=== PATIENT | male | born 1955 | race Two or more races ===

== ENCOUNTER 2022-08-12 12:42 | Inpatient (IN) | payer MEDICARE, OTHER ==
[~2022-08-12] VITALS: Ht 180.3 cm; Wt 72.2 kg
--- NOTE | 2022-08-12 12:50 | NUR ---
[id number] FROM [place] C/O BILAT FOOT PAIN X1WEEK WORST TODAY
[2022-08-12] MEDS ORDERED: IBUPROFEN 600 MG TABLET PO ONE (14:30)
[2022-08-12] MEDS ORDERED: GABAPENTIN 100 MG CAPSULE PO ONE (14:30)
[2022-08-12] MEDS ORDERED: GABAPENTIN 100 MG CAPSULE ONE (15:05)
[2022-08-12] MEDS ORDERED: IBUPROFEN 600 MG TABLET ONE (15:05)
[2022-08-12] MEDS ORDERED: GABA-532 PO (16:06)
[2022-08-12] MEDS ORDERED: ACET-2605 PO (16:06)
--- NOTE | 2022-08-12 16:23 | NUR ---
PATIENT STATES UNABLE TO AMBULATE, DR MARQUEZ MADE AWARE.
[2022-08-12 17:11] LABS: BASOPHILS % (AUTO) 0.1 % (0.0-2.0); HEMATOCRIT 33 % (39-51); HEMOGLOBIN 10.6 g/dL (13.5-17.5); LYMPHOCYTES # (AUTO) 0.9 K/uL (0.8-4.8); LYMPHOCYTES % (AUTO) 6.4 % (20.0-44.0); MEAN CORPUSCULAR HGB CONC 32 g/dl (31.0-36.0); MEAN CORPUSCULAR VOLUME 94 fL (80-96); MONOCYTES # (AUTO) 0.9 K/uL (0.1-1.30); MONOCYTES % (AUTO) 6.3 % (2.0-12.0); NEUTROPHILS % (AUTO) 86.2 % (43.0-81.0); PLATELET COUNT (AUTO) 320 K/uL (150-450); RED BLOOD CELL COUNT(AUTO) 3.49 MIL/uL (4.5-6.0); WHITE BLOOD COUNT (AUTO) 13.9 K/uL (4.3-11.0)
--- NOTE | 2022-08-12 17:19 | NUR ---
EPIC PAGED, AWAITING CALL BACK FROM DR. GAITAN
--- NOTE | 2022-08-12 17:39 | NUR ---
MOVE SHEET SUBMITTED
[2022-08-12 18:03] LABS: ALBUMIN 2.7 g/dL (3.4-5.0); BILIRUBIN,DIRECT 0.2 mg/dL (0.0-0.2); BILIRUBIN,TOTAL 0.4 mg/dL (0.2-1.0); CALCIUM, SERUM 8.6 mg/dL (8.5-10.1); CREATININE 1.3 mg/dL (0.6-1.3); POTASSIUM 3.7 mmol/L (3.5-5.1); TOTAL PROTEIN, SERUM 6.8 g/dL (6.4-8.2)
[2022-08-12] MEDS ORDERED: IV NS 0.9% 250 ML IV ONE (18:27)
[2022-08-12] MEDS ORDERED: IOHEXOL-350 100 ML VIAL IV ONE (18:27)
--- NOTE | 2022-08-12 18:42 | NUR ---
GOT BED 323-2
--- NOTE | 2022-08-12 19:50 | NUR ---
DR MARQUEZ ON THE PHONE WITH ONCALL VASCULAR SURGON FOR DR MARKS
--- NOTE | 2022-08-12 21:27 | NUR ---
REPORT GIVEN TO CYNDI COLLIER ROOM 312 FOR RIGO
--- NOTE | 2022-08-12 21:35 | NUR ---
TRANSFERRED TO 323 IN STALE CONDITION
[2022-08-12 21:40] VITALS: BP 90/73
[2022-08-12 21:45] VITALS: BP 95/73
--- NOTE | 2022-08-12 21:45 | NUR ---
MS METAL SMELTER NOTE PT TRANSPORTED VIA GURNEY TO UNIT AT THIS TIME. PT ADMITTED TO MS UNIT FROM ER UNDER DRAG OUT WORKER YASIR FOR ADMITTING DX LOWER EXTREMITY CELLULITIS. A/O X4 AND ABLE TO MAKE NEEDS KNOWN, POOR HISTORIAN. PT UNABLE TO AMBULATE AT THIS TIME D/T INCREASED PAIN AND SWELLING OF BLE. PT STABLE ON ROOM AIR. NO SOB OR S/S OF RESPIRATORY DISTRESS. BREATHING EVEN AND UNLABORED. NOTED WITH SWELLING AND REDNESS OF BLE, PEDAL PULSES ABSENT, MD AWARE. IV ACCESS RAC 20G, INTACT AND PATENT. PT ORIENTED TO ROOM, UNIT, AND STAFF. BELONGINGS ACCOUNTED FOR AND BELONGINGS LIST SIGNED. SAFETY PRECAUTIONS IN PLACE. BED IN LOWEST LOCKED POSITION, HOB ELEVATED, SIDE RAILS UP X2, AND CALL LIGHT AND TABLE WITHIN REACH. ALL NEEDS MET AT THIS TIME.
[2022-08-12] MEDS: IV NS 0.9% 1,000 ML IV PRN (23:29)
[2022-08-12] MEDS ORDERED: MAG HYDROX/AL HYDROX/SIMETH 30 ML UDC PO PRN (23:30)
[2022-08-12] MEDS ORDERED: ACETAMINOPHEN 325 MG TABLET PO PRN (23:30)
[2022-08-12] MEDS ORDERED: ZOLPIDEM TARTRATE 5 MG TABLET PO PRN (23:30)
[2022-08-12] MEDS ORDERED: MAGNESIUM HYDROXIDE 30 ML UDC PO PRN (23:30)
[2022-08-12] MEDS ORDERED: Z GUARD REMEDY 4 OZ OINT TP PRN (23:30)
[2022-08-12] MEDS ORDERED: ONDANSETRON HCL/PF 4 MG/2 ML VIAL IVP PRN (23:30)
[2022-08-12] MEDS ORDERED: VANCOMYCIN 1 GM in IV D5W 250 ML IV ONE (23:30)
[2022-08-12] MEDS ORDERED: HYDROCODONE/APAP 5/325MG TABLET PO PRN (23:30)
[2022-08-12] MEDS ORDERED: VANCOMYCIN 1 GM VIAL ONE (23:43)
[2022-08-12] MEDS: ENOXAPARIN SODIUM 40 MG/0.4 ML DISP.SYRIN SQ SCH (23:48)
--- NOTE | 2022-08-13 06:53 | NUR ---
MS RN CLOSING NOTE PT AWAKE IN BED. A/O X4 AND ABLE TO MAKE NEEDS KNOWN, POOR HISTORIAN. PT STABLE ON ROOM AIR. NO SOB OR S/S OF RESPIRATORY DISTRESS. BREATHING EVEN AND UNLABORED. IV ACCESS RAC 20G, INTACT AND PATENT,RUNNING NS @ 100 ML/HR. ALL DUE MEDS GIVEN ORDERED. SAFETY PRECAUTIONS IN PLACE AT ALL TIMES. BED IN LOWEST LOCKED POSITION, HOB ELEVATED, SIDE RAILS UP X2, AND CALL LIGHT AND TABLE WITHIN REACH. ALL NEEDS MET AT THIS TIME AND WILL ENDORSE TO ONCOMING NURSE FOR RIGO.
[2022-08-13 07:28] LABS: BASOPHILS % (AUTO) 0.2 % (0.0-2.0); EOSINOPHILS % (AUTO) 2.6 % (0.0-6.0); HEMATOCRIT 34 % (39-51); HEMOGLOBIN 10.9 g/dL (13.5-17.5); LYMPHOCYTES # (AUTO) 0.9 K/uL (0.8-4.8); MEAN CORPUSCULAR HGB CONC 32 g/dl (31.0-36.0); MEAN CORPUSCULAR VOLUME 95 fL (80-96); MONOCYTES # (AUTO) 0.9 K/uL (0.1-1.30); MONOCYTES % (AUTO) 9.4 % (2.0-12.0); NEUTROPHILS # (AUTO) 7.2 K/uL (1.8-8.9); NEUTROPHILS % (AUTO) 77.8 % (43.0-81.0); PLATELET COUNT (AUTO) 307 K/uL (150-450); RED BLOOD CELL COUNT(AUTO) 3.56 MIL/uL (4.5-6.0); WHITE BLOOD COUNT (AUTO) 9.2 K/uL (4.3-11.0)
[2022-08-13 08:00] VITALS: BP 86/66
[2022-08-13 08:05] LABS: CALCIUM, SERUM 8.3 mg/dL (8.5-10.1); CREATININE 1.3 mg/dL (0.6-1.3); MAGNESIUM 1.3 mg/dL (1.8-2.4); PHOSPHORUS 3.6 mg/dL (2.5-4.9); POTASSIUM 3.9 mmol/L (3.5-5.1)
[2022-08-13] MEDS ORDERED: PANTOPRAZOLE 40 MG VIAL IV SCH (09:00)
--- NOTE | 2022-08-13 09:59 | NUR ---
WOUND CARE CONSULT: RECEIVED CONSULT FOR LOWER LEG CELLULITIS, PRESENT ON ADMISSION. PT IS SLEEPING SOUNDLY. REVIEWED ADMISSION PHOTOS AND SPOKE WITH NURSING STAFF. DR VARELA CALLED FOR DPM CONSULT. IN AGREEMENT WITH PLAN OF CARE.
[2022-08-13] MEDS: GABAPENTIN 100 MG CAPSULE PO SCH ×3 (10:34→17:18)
[2022-08-13] MEDS: ASPIRIN 81 MG TAB.CHEW PO SCH (10:34)
[2022-08-13] MEDS: Magnesium 1GM/D5W 100ML PREMIX 100 ML IV SCH ×4 (10:35→14:53)
[2022-08-13 16:00] VITALS: BP 111/74
--- NOTE | 2022-08-13 16:05 | NUR ---
SS CONSULT requested for homelessness. SW will follow up at a later time.
[2022-08-13] MEDS: VANCOMYCIN 0.75 GM in IV D5W 250 ML IV SCH ×2 (16:25→22:00)
--- NOTE | 2022-08-13 19:30 | NUR ---
PATIENT RECEIVED IN BED AND AWAKE. A/OX3-4 AND ABLE TO VERBALIZE NEEDS. COMPLAINING OF SOB. CRANE HOOKER AT BEDSIDE. WILL ASK FOR PRN ORDER. O2 SAT AT 99%. IV ACCESS ON RAC G#20 INFUSING 0.9NS AT 100ML/HR. URINAL AT BEDSIDE. SAFETY MEASURES IN PLACE. CALL LIGHT WITHIN REACH. WILL CONTINUE PLAN OF CARE.
--- NOTE | 2022-08-13 19:39 | NUR ---
RN CLOSING NOTE PATIENT RECEIVED IN BED AND AWAKE. A/OX3-4 AND ABLE TO VERBALIZE NEEDS. IV ACCESS INTACT AND PATENT WITH NS RUNNING CONTINUOUSLY @ 100ML/HR. MAGNESIUM REPLACED ON SHIFT. TOLERATED WELL. IV ABX THERAPY ADMINISTERED ON SHIFT. TOLERATED WELL WITH NO S/SX OF ADVERSE REACTIONS. NO S/SX OF DISTRESS OBSERVED OR REPORTED. TOLERATED FULL LIQUID DIET WELL. SAFETY MEASURES INTACT WITH BED LOW AND LOCKED. CALL LIGHT WITHIN REACH. WILL CONT TO MONITOR.
[2022-08-13 20:00] VITALS: BP 106/82
[2022-08-13] MEDS: MORPHINE SULFATE INJ 2 MG/ML DISP.SYRIN IV PRN (20:41)
[2022-08-13] MEDS: CEFTRIAXONE 1 G in IV D5W 50 ML IV SCH (21:34)
[2022-08-13] MEDS: ENOXAPARIN SODIUM 40 MG/0.4 ML DISP.SYRIN SQ SCH (21:35)
[2022-08-13] MEDS: IV NS 0.9% 1,000 ML IV PRN (22:00)
[2022-08-14 04:00] VITALS: BP 110/80
--- NOTE | 2022-08-14 06:31 | NUR ---
PATIENT IN BED AWAKE. A/OX3-4 AND ABLE TO VERBALIZE NEEDS. NO SOB. O2 SAT AT 100%. IV ACCESS ON RAC G#20 INFUSING 0.9NS AT 100ML/HR. URINAL AT BEDSIDE. DUE MEDS AND PRN MEDS GIVEN ORDERED AND NEEDED. NEEDS ATTENDED. SAFETY MEASURES MAINTAINED. CALL LIGHT WITHIN REACH. WILL ENDORSE TO NEXT NURSE ON DUTY FOR CONTINUITY OF CARE.
--- NOTE | 2022-08-14 07:28 | NUR ---
MS RN OPENING NOTE RECEIVED PT AWAKE AND RESTING IN BED. PT A/O X4, ABLE TO MAKE NEEDS KNOWN. ON ROOM AIR, TOLERATING WELL. NO SOB NOTED. NOT IN ANY SIGN OF RESPIRATORY DISTRESS. IV ACCESS IN RAC G#20, INTACT AND PATENT WITH NS INFUSING AT 100ML/HR. SAFETY MEASURES IN PLACE: BED IN LOWEST AND LOCKED POSITION, SIDE RAILS UPX2, BED ALARM ON, AND CALL LIGHT WITHIN REACH. WILL CONTINUE TO MONITOR PT.
[2022-08-14 07:30] LABS: BASOPHILS % (AUTO) 0.1 % (0.0-2.0); EOSINOPHILS % (AUTO) 2.6 % (0.0-6.0); HEMATOCRIT 34 % (39-51); HEMOGLOBIN 11.1 g/dL (13.5-17.5); LYMPHOCYTES # (AUTO) 1.1 K/uL (0.8-4.8); LYMPHOCYTES % (AUTO) 12.5 % (20.0-44.0); MEAN CORPUSCULAR HGB CONC 33 g/dl (31.0-36.0); MEAN CORPUSCULAR VOLUME 96 fL (80-96); MONOCYTES # (AUTO) 0.9 K/uL (0.1-1.30); MONOCYTES % (AUTO) 10.6 % (2.0-12.0); NEUTROPHILS # (AUTO) 6.6 K/uL (1.8-8.9); NEUTROPHILS % (AUTO) 74.2 % (43.0-81.0); PLATELET COUNT (AUTO) 327 K/uL (150-450); RED BLOOD CELL COUNT(AUTO) 3.52 MIL/uL (4.5-6.0); WHITE BLOOD COUNT (AUTO) 8.9 K/uL (4.3-11.0)
[2022-08-14 08:00] VITALS: BP 96/74
[2022-08-14 08:08] LABS: CALCIUM, SERUM 7.9 mg/dL (8.5-10.1); MAGNESIUM 2.1 mg/dL (1.8-2.4); PHOSPHORUS 3.3 mg/dL (2.5-4.9); POTASSIUM 4.3 mmol/L (3.5-5.1)
[2022-08-14] MEDS ORDERED: PANTOPRAZOLE 40 MG/PACK PACK PO SCH (09:00)
[2022-08-14] MEDS: GABAPENTIN 100 MG CAPSULE PO SCH ×3 (09:37→16:58)
[2022-08-14] MEDS: ASPIRIN 81 MG TAB.CHEW PO SCH (09:38)
--- NOTE | 2022-08-14 10:22 | NUR ---
"SW CONSULT: SW consult requested for homelessness. Patient brought to the hospital due to Vascular- Bilateral foot pain possible cellulites. Patient was cooperative with this check writer salesperson while conducting the assessment, he did stated that he is feeling weak and dizzy. Patient is alert and oriented x3 (self,place,situation). Patient stated he was brought to the hospital because of his foot pain. Patient reported that he has been living on the streets near [facility] in a tent. He stated that upon discharge he would want to return back to his tent that he has been living for about a month. He stated that he has been homeless on and off. Patient reported that he had a brother who is . 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 Patient reported no mental health illness history. Patient denies suicidal or homicidal ideation. Patient denied visual/auditory hallucinations. SW assessed for substance abuse and pt expressed that he has been drinking beer 3-4 times a week, he stated that he currently has quitted smoking. Pt denied any use of drugs only alcohol. SW offered pt resources and pt was accepting of shelters and substance abuse referrals. DC Plan: Pt stated that upon discharge he would want to return back to his tent near [facility]. CM will follow up with recommendations for doctor. Resources was given and pt was accepting. Substance Abuse resources provided included: [facility] Substance Abuse Self-Helpline ([facility]) ; CRI -[facility]LP [address] [facility]. [place] [phone] ; [facility] [address] [facility] [address] ; [facility] Rehabilitation Program [address] [facility] [address] ; [facility] [address] [facility] [address] ; [facility] [address] [facility] [address] ; [facility] [address] [facility] [phone] ; [facility] Substance Abuse Helpline([facility])-[facility] ; [facility] Family [facility] ; [facility] [place]; [facility] [place]; [facility] [place]; [facility] [place]; [facility]; [facility]; [facility]; [facility], [facility]. [place]; Alcoholics Anonymous -SFV; Dr-Kyua-Ycucxkr ; Marijuana Anonymous -[facility]V; Narcotics Anonymous www.na.org; Shelters: [facility] Provider: [facility] of [facility] Address: [address] [facility], [address] # of Beds: 47 Population Served: [facility] 6 | [facility] Provider: Home at Last Address: [address], [address] # of Beds: 66 Population Served: [facility] Provider: First to Serve Address: [address] [facility], [address] # of Beds: 56 Population Served: [facility] [place]rain [place] Provider: ALL[facility]. [facility] Address: [address] [facility], [address] # of Beds: 49 Population Served: [facility] 8 | [facility] Provider: First to Serve Address: [address] [facility], [address] # of Beds: 37 Population Served: [facility] Hygiene: [facility]: [address] [place] ; [facility] [address] [facility] ; [facility] [address] [place] Kar[place] . Food Resources: [facility] at [facility]- [address] [place]; Meet Each Need with Dignity ([facility]) [address] [place]; [facility] [address] [facility]; [facility] [address]. Mental Health resources provided: [facility] [address] [place], [place] [address] ; [facility] [address] [facility] [address], [place], [place] [id number] ; [facility] Mental [facility] [address] [facility] [place], [place] [phone] ; [facility] [address] [place], [place] [phone] Healthcare Clinics: [facility] [address] [facility], [address] [place]. [place] ; [facility] [address] [facility] [address] [place] [address]; [facility] [place] [address] [facility]. [place] 15[address] [phone] Counseling--Outpatient [facility] [address] [facility], [address] [place], [place] [address] (Specializes in in-depth psychotherapy for emotional distress: anxiety, depression, interpersonal conflicts, life transitions, childhood abuse) [facility] [address] [place] [address] (Assist with solving problem marital difficulties, separation & divorce, aging parents, & grief, chronic & terminal illness) [facility] [address] [place] [address] (Deal with loss & grief, anxiety, marital difficulties) Homebound/Mental Health Services [address] [facility], [address] [place], [place] [phone] (Provide in-home mental services to people who are incapable of leaving their homes) [facility] Elderly Senior Service/Resource Center [address] [place] [address] [facility] [address] [place] [address] PSYCHIATRIC OUTPATIENT SERVICES [facility] Partial Hospitalization and Intensive Outpatient Program (Managed Care and [place] Only)[address] [address] [facility] [phone] [facility] Partial Hospitalization and Outpatient [id number] [place], [place] [phone] [facility] Mental Health [place] C[address] [place], [place] [phone] [facility] Partial Hospitalization and Outpatient [id number] [facility] AubreyCHUALAR, [phone] "
[2022-08-14] MEDS: VANCOMYCIN 0.75 GM in IV D5W 250 ML IV SCH ×2 (11:55→23:24)
[2022-08-14] MEDS ORDERED: THIAMINE HCL 100 MG TABLET PO SCH (12:30)
[2022-08-14] MEDS: MORPHINE SULFATE INJ 2 MG/ML DISP.SYRIN IV PRN (15:35)
[2022-08-14] MEDS: IV NS 0.9% 1,000 ML IV PRN (15:35)
--- NOTE | 2022-08-14 15:38 | NUR ---
RN NOTE PT C/O RIGHT LOWER FOOT PAIN WITH PAIN SCALE LEVEL OF 8/10 AND REQUESTED FOR MORPHINE. MORPHINE 2MG IVP GIVEN ORDERED PRN Q4HRS FOR SEVERE PAIN. WILL MONITOR AND REASSESS PT.
--- NOTE | 2022-08-14 19:30 | NUR ---
MS RN OPENING NOTE RECEIVED PATIENT IN BED, WITH HOB ELEVATED, ALERT AND ORIENTED X4. ABLE TO MAKE NEEDS KNOWN. AFEBRILE AND NOT IN ANY FORM OF ACUTE DISTRESS. NO C/O PAIN OR DISCOMFORT AT THIS TIME. MAINTAINED ON FULL LIQUID DIET ORDERED. SAFETY MEASURES IN PLACE. KEPT BED IN LOCKED AND IN LOW POSITION TO REDUCE INJURY. SIDE RAILS UP X2. ADVISED TO USE THE CALL LIGHT WHEN IN NEED OF ASSISTANCE.
--- NOTE | 2022-08-14 19:39 | NUR ---
MS RN CLOSING NOTE PT AWAKE AND RESTING IN BED. PT A/O X4, ABLE TO MAKE NEEDS KNOWN. ON ROOM AIR, TOLERATING WELL. NO SOB NOTED. NOT IN ANY SIGN OF RESPIRATORY DISTRESS. IV ACCESS IN RAC G#20 WAS PULLED OUT BY PT ACCIDENTLY. ATTEMPTED TO REINSERT THE IV BUT UNABLE TO. ENDORSED TO B AND B GANG WORKER NURSE OSMEL. PER OSMEL, SHE WILL TRY TO REINSERT IV. ALL NEEDS ATTENDED. KEPT CLEAN AND COMFORTABLE AT ALL TIMES. SAFETY MEASURES IN PLACE: BED IN LOWEST AND LOCKED POSITION, SIDE RAILS UPX2, BED ALARM ON, AND CALL LIGHT WITHIN REACH. ENDORSED TO NIGHT NURSE FOR RIGO.
--- NOTE | 2022-08-14 20:00 | NUR ---
MS RN NOTE PER REPORT, PATIENT PULLED OUT IV SITE. REINSERTED IV LINE ON R FOREARM 22G- AND NOTED WITH GOOD BLOOD FLOW. TOLERATED THE PROCEDURE WELL. ADMINISTERED IV ATB FOR CELLULITIS. MONITORED FOR ANY ADVERSE REACTION.
[2022-08-14] MEDS: CEFTRIAXONE 1 G in IV D5W 50 ML IV SCH (20:42)
[2022-08-14] MEDS: ENOXAPARIN SODIUM 40 MG/0.4 ML DISP.SYRIN SQ SCH (21:56)
--- NOTE | 2022-08-15 01:47 | NUR ---
MS RN NOTE PATIENT KEEPS ON GETTING OUT OF BED AND CLAIMED THAT HE'S HAVING HARD TIME SLEEPING DESPITE OFFERING SOME JUICE. ADMINISTERED AMBIEN ORDERED.
[2022-08-15] MEDS: IV NS 0.9% 1,000 ML IV PRN (06:17)
--- NOTE | 2022-08-15 06:42 | NUR ---
MS RN CLOSING NOTE PATIENT IN BED, WITH HOB ELEVATED, ALERT AND ORIENTED X4, DOZING INTERMITTENTLY. ABLE TO MAKE NEEDS KNOWN. AFEBRILE AND NOT IN ANY FORM OF ACUTE DISTRESS. NO C/O PAIN OR DISCOMFORT THROUGHOUT THE SHIFT. MAINTAINED ON FULL LIQUID DIET ORDERED. MEDICATED ORDERED. ON IV ATB FOR CELLULITIS, MONITORED FOR ANY ADVERSE REACTION. SAFETY MEASURES IN PLACE. KEPT BED IN LOCKED AND IN LOW POSITION TO REDUCE INJURY. SIDE RAILS UP X2. ADVISED TO USE THE CALL LIGHT WHEN IN NEED OF ASSISTANCE. ALL NURSING NEEDS ATTENDED. ENDORSED TO INCOMING SHIFT FOR CONTINUITY OF CARE.
[2022-08-15 06:48] LABS: BASOPHILS % (AUTO) 0.2 % (0.0-2.0); HEMATOCRIT 36 % (39-51); HEMOGLOBIN 11.3 g/dL (13.5-17.5); LYMPHOCYTES % (AUTO) 10.8 % (20.0-44.0); MEAN CORPUSCULAR HGB CONC 32 g/dl (31.0-36.0); MEAN CORPUSCULAR VOLUME 96 fL (80-96); MONOCYTES # (AUTO) 1.1 K/uL (0.1-1.30); MONOCYTES % (AUTO) 11.1 % (2.0-12.0); NEUTROPHILS # (AUTO) 7.3 K/uL (1.8-8.9); NEUTROPHILS % (AUTO) 75.9 % (43.0-81.0); PLATELET COUNT (AUTO) 330 K/uL (150-450); WHITE BLOOD COUNT (AUTO) 9.6 K/uL (4.3-11.0)
[2022-08-15 07:00] VITALS: BP 130/101
[2022-08-15 07:27] LABS: CALCIUM, SERUM 8.4 mg/dL (8.5-10.1); CREATININE 1.2 mg/dL (0.6-1.3); MAGNESIUM 1.9 mg/dL (1.8-2.4); PHOSPHORUS 3.4 mg/dL (2.5-4.9)
[2022-08-15] MEDS ORDERED: DOXYCYCLINE HYCLATE (100 MG) 100 MG TABLET PO SCH (21:00)
== END 2022-08-15 14:10 | disposition home or self-care (01) | DRG 602 ==
LOC: ER 12:48 → TRANSITION 18:04 → MED 18:54
PROVIDERS: ADMIT Nurse Practitioner Acute Care; ATTEND Nurse Practitioner Acute Care
DX: L03.116 Cellulitis of left lower limb (principal); K85.20 Alcohol induced acute pancreatitis without necrosis or infection; L03.115 Cellulitis of right lower limb; Z59.00 Homelessness unspecified; D64.9 Anemia, unspecified; G89.29 Other chronic pain; Z79.82 Long term (current) use of aspirin; Z20.822 Contact with and (suspected) exposure to COVID-19; M79.672 Pain in left foot; M79.671 Pain in right foot; B35.1 Tinea unguium; M20.42 Other hammer toe(s) (acquired), left foot; M20.41 Other hammer toe(s) (acquired), right foot; I73.9 Peripheral vascular disease, unspecified; G62.9 Polyneuropathy, unspecified
CPT/HCPCS: 36415; 71045-TC; 76700-TC; 80048-TC; 80061-TC; 80076-TC; 80202-TC; 82962-TC; 83690-TC; 83735-TC; 84100-TC; 85025-TC; 85652-TC; 85730-TC; 86140-TC; 86850-TC; 87081-TC; 97110-TC; 97530-TC; C9113; G0378; J0696; J1650; J2270; J3370; J3475; J7030; J7050; J7060; Q9967